=== PATIENT | male | born 1990 | race African-American/Black ===

== ENCOUNTER 2017-10-19 21:01 | Emergency (ER) | payer OTHER, BC ==
[~2017-10-19] VITALS: Ht 195.6 cm; Wt 90.0 kg
[~2017-10-19 21:01] MED LIST: PERC5TAB12 PO; PROM12.54 PO; PROM1SUP7 RECTAL; PROT40TA PO; ZOFR4TAB3 SL
[2017-10-19 21:23] VITALS: BP 121/76; PULSE 75; RESP 16; TEMP 98.8; O2SAT 98
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
== END 2017-10-20 01:50 | disposition home or self-care (01) ==
LOC: NEPD 21:01
DX: S09.90XA Unspecified injury of head, initial encounter (principal); Y04.2XXA Assault by strike against or bumped into by another person, initial encounter
CPT/HCPCS: 70450